=== PATIENT | female | born 1980 | race Two or more races ===

== ENCOUNTER 2021-07-27 11:13 | Emergency (ER) | payer OTHER ==
[~2021-07-27] VITALS: Ht 157.5 cm; Wt 76.2 kg
== END 2021-07-27 15:06 | disposition home or self-care (01) ==
LOC: ER 11:13
DX: N93.8 Other specified abnormal uterine and vaginal bleeding (principal); D25.2 Subserosal leiomyoma of uterus; Q52.4 Other congenital malformations of vagina